=== PATIENT | male | born 2005 | race African-American/Black ===

== ENCOUNTER 2025-03-28 10:24 | Emergency (ER) | payer MEDICAID ==
[~2025-03-28] VITALS: Ht 203.2 cm; Wt 111.1 kg
[2025-03-28 10:33] VITALS: O2SAT 99
[2025-03-28] MEDS ORDERED: IBUP-2029 MT (11:19)
[2025-03-28] MEDS: IBUPROFEN 600MG TABLET PO ONE (11:27)
[2025-03-28 12:36] VITALS: BP 130/72; PULSE 72; RESP 16; TEMP 36.6; O2SAT 99
== END 2025-03-28 12:36 | disposition home or self-care (01) ==
LOC: ER 10:24
DX: R51.9 Headache, unspecified (principal); M54.50 Low back pain, unspecified; Z98.890 Other specified postprocedural states
CPT/HCPCS: 72100; 99283; Z7610